=== PATIENT | female | born 1985 | race Caucasian/White ===

== ENCOUNTER 2022-10-28 19:47 | Emergency (ER) | payer OTHER, SELFPAY ==
[2022-10-28 19:47] VITALS: BP 154/106; PULSE 102; RESP 20; TEMP 36.8; O2SAT 98; BMI 39.5
[2022-10-28 20:16] VITALS: BMI 39.5
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
--- NOTE | 2022-10-28 20:22 | PC.NURSE ---
PD at BS speaking with pt
--- NOTE | 2022-10-28 20:35 | PC.NURSE ---
called Lab for a legal blood draw
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
[2022-10-28 20:53] VITALS: BMI 39.5
[2022-10-28 21:07] LABS: Basophils % 0.3 % (0.1-2.0); Eosinophils # 0.1 K/mm3 (0.0-0.4); Eosinophils % 0.7 % (0.1-12.0); Hematocrit 34.8 % (37.0-47.0); Hemoglobin 11.4 g/dL (12.2-16.2); Lymphocytes # 1.7 K/mm3 (0.7-4.5); Lymphocytes % 20.8 % (10-50); Mean Corpuscular HGB Conc 32.9 g/dL (31.8-35.4); Mean Corpuscular Hemoglobin 29.5 pg (27.0-31.2); Mean Corpuscular Volume 89.5 fl (81-99); Monocytes # 0.5 K/mm3 (0.1-1.0); Monocytes % 6.4 % (1.7-9.3); Neutrophils # 5.8 K/mm3 (1.8-7.8); Neutrophils % 71.8 % (37.0-80.0); Platelet Count 179 K/mm3 (142-424); Red Blood Count 3.88 M/mm3 (4.20-5.40); Red Cell Distribution Width 15.8 % (11.5-17.5); White Blood Count 8.1 K/mm3 (4.8-10.8)
[2022-10-28 21:12] LABS: Alanine Aminotransferase 26 U/L (12-78); Albumin Level 3.9 g/dl (3.5-5.0); Albumin/Globulin Ratio 1.3 (1.1-1.8); Alkaline Phosphatase 105 U/L (38-126); Anion Gap -0.5 mEq/L (5-15); Aspartate Amino Transferase 41 U/L (14-36); Bilirubin,Total 0.6 mg/dl (0.2-1.3); Blood Urea Nitrogen 19 mg/dl (7-17); Calcium 10.1 mg/dl (8.4-10.2); Carbon Dioxide 24 mmol/L (22.0-30.0); Chloride 110 mmol/L (98-107); Creatinine Clearance Estimated 176 mL/min (50-200); Estimated Glomerular Filt Rate 80 ml/min (>60); GFR (African American) 97 ML/MIN (>60); Globulin 2.9 g/dL (1.3-3.2); Glucose 133 mg/dl (74-100); Potassium 3.5 mmoL/L (3.5-5.1); Sodium 130 mmol/L (136-145); Total Protein,Serum 6.8 g/dl (6.3-8.2)
--- NOTE | 2022-10-28 21:18 | PC.NURSE ---
Dr. Garcia at
[2022-10-28 21:37] LABS: HCG Qualitative, Serum Negative (Negative)
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
[2022-10-28 21:53] LABS: Microscopic, Urine URINE MICROSCOPIC (MICROSCOPIC)
[2022-10-28 21:56] LABS: Appearance,Urine CLEAR (Clear); Blood, Urine 2+ (Negative); Color,Urine YELLOW (Yellow); Glucose,Urine (UA) Negative (Negative); Ketones,Urine 2+ (Negative); Leukocyte Esterase,Urine Negative (Negative); Nitrate,Urine Negative (Negative); Protein,Urine TRACE (Negative); Specific Gravity, Urine >= 1.030 (1.005-1.030)
--- NOTE | 2022-10-28 22:05 | PC.NURSE ---
Pt back from RAD
[2022-10-28 22:07] LABS: Barbiturates Screen,Urine Negative ng/ml (<200); Benzodiazepines Screen,Urine Negative ng/ml (<200)
[2022-10-28 22:09] LABS: Cocaine Screen,Urine Negative ng/ml (<300); Methadone Screen,Urine Negative ng/ml (<300)
[2022-10-28 22:10] LABS: Bilirubin,Urine 1+ (Negative); Cannabinoid Screen,Urine Positive ng/ml (<50)
[2022-10-28 22:11] LABS: Opiate Screen,Urine Negative ng/ml (<300); Phencyclidine Screen,Urine Negative ng/ml (<25)
[2022-10-28 22:19] LABS: Bacteria,Urine 1+ /lpf; Mucus,Urine Trace /lpf
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
--- NOTE | 2022-10-29 07:32 | PC.NURSE ---
pt came to desk and asked for a drink and if we have any womans centers, care management called, they are to call back
[2022-10-29 07:36] VITALS: BP 137/94; PULSE 98; RESP 20; O2SAT 99
--- NOTE | 2022-10-29 07:51 | PC.NURSE ---
care management called and they are coming to see pt.
[2022-10-29 08:00] VITALS: BP 124/95; PULSE 102; RESP 17; O2SAT 98
--- NOTE | 2022-10-29 08:04 | PC.NURSE ---
care management at the bedside
--- NOTE | 2022-10-29 08:36 | PC.NURSE ---
care management back at the bedside to speak with pt
--- NOTE | 2022-10-29 09:04 | PC.NURSE ---
Gino Albarran advised the Bus would not be here till about 4 pm
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
[2022-10-29 09:30] VITALS: BP 175/90; PULSE 76; RESP 20; TEMP 36.8; O2SAT 98
== END 2022-10-29 09:32 | disposition home or self-care (01) ==
PROVIDERS: Emergency Provider Emergency Medicine
DX: S39.012A Strain of muscle, fascia and tendon of lower back, initial encounter (principal); S29.019A Strain of muscle and tendon of unspecified wall of thorax, initial encounter; S06.0XAA Concussion with loss of consciousness status unknown, initial encounter; V89.2XXA Person injured in unspecified motor-vehicle accident, traffic, initial encounter
CPT/HCPCS: 70450; 71045; 72125; 72128; 72131; 72170; 80053; 80305; 81001; 84703; 85025; 99285